=== PATIENT | male | born 1955 | race African-American/Black ===

== ENCOUNTER 2023-11-27 11:13 | Emergency (ER) | payer MEDICARE, SELFPAY ==
--- NOTE | ~2023-11-27 | CT_ITS ---
EXAMINATION: CT pelvis wo con DATE: 11/27/2023 13:35 INDICATION: Right hip and pelvic pain. Fall. TECHNIQUE: Computed tomography (CT) of the pelvis was performed without intravenous contrast. Automat ed exposure control and iterative reconstruction technique were employed. The dose-length product was 224.06 mGy-cm. COMPARISON: None FINDINGS: There are no pathologically enlarged lymph nodes. There is no ascites. Bone alignment is no rmal. No fracture. There is a benign bone island in right pelvis. There is mild osteoarthritis of the hips. There is mild lumbar spondylosis. IMPRESSION: 1. No fracture. 2. Mild osteoarthritis of the hips. Reviewed, dictated and finalized at location A.
[2023-11-27 11:43] VITALS: BP 139/109; PULSE 63; RESP 19; TEMP 36.4; O2SAT 100
--- NOTE | 2023-11-27 13:27 | ED.LOWEXIN ---
HPI - Extremity Injury (Lower) General Chief Complaint: Extremity Injury, Lower <AUDREY Jaimes Last Filed: 11/27/23 13:30> Stated Complaint: fall 2 weeks ago-right hip pain <Marisol Dyson PA-C - Last Filed: 11/27/23 13:30> Time Seen by Provider: 11/27/23 13:28 <AUDREY Jaimes Last Filed: 11/27/23 13:30> Focused HPI: Patient is a 68-year-old male who presents the ED with report of right hip and pelvic pain. 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 He fell onto his right side. He has been ambulatory since fall, but complains of pain with this. Reports pain is rated a 10/10 at times, causing him to have trouble with sleeping. he was seen at [facility] and prescribed meloxicam and given a dose of steroids. He did not have any imaging performed. He reports minimal relief with meloxicam. States pain radiates down his leg. Denies back pain. Denies numbness, saddle anesthesia, bowel or bladder incontinence. GENERAL: Well-appearing, well-nourished, and in no acute distress. HEAD: Normocephalic, atraumatic. CHEST: Clear to auscultation. ?No respiratory distress. HEART: Regular rate and rhythm.? MSK: TTP in R SI region, R posterior buttock, R lateral hip. Sensation intact. No midline spinal tenderness. NEURO: ?Alert and oriented x3. Patient screened in triage and initial orders placed.? ?Additional care and disposition to be based upon?diagnostic testing and treatment. <AUDREY Jaimes Last Filed: 11/27/23 13:30> Source: patient <AUDREY Jaimes Last Filed: 11/27/23 13:30> Mode of arrival: ambulatory <AUDREY Jaimes Last Filed: 11/27/23 13:30> Limitations: no limitations <AUDREY Jaimes Last Filed: 11/27/23 13:30> History of Present Illness HPI Narrative: Agree with the above with the following additions/corrections: Fall occurred 2 weeks ago. He states [place] give him some 500mg medication but this made his stomach hurt. It was his primary care provider Libertad Ashton who prescribed the steroid and meloxicam. States no imaging performed yet and had been having 10/10 pain that was affecting sleep and ADLs. He initially had bruising and swelling but states that went away with the medications his provider prescribed. At the time of my evaluation he had just received 1000mg Tylenol and stated he felt so good I feel like I could dance. <Ekaterina Levy MD - Last Filed: 11/27/23 23:46> Related Data Allergies/Adverse Reactions: Allergies Allergy/AdvReac Type Severity Reaction Status Date / Time No Known Allergies Allergy Verified 11/27/23 14:18 <Marisol Dyson PA-C - Last Filed: 11/27/23 13:30> Exam Const: General: healthy appearing, no acute distress and alert; No confusion, diaphoretic or ill appearing <Ekaterina Levy MD - Last Filed: 11/27/23 23:46> Nutritional Appearance: well nourished <Ekaterina Levy MD - Last Filed: 11/27/23 23:46> Orientation/consciousness: patient oriented x3 <Ekaterina Levy MD - Last Filed: 11/27/23 23:46> Limitations: no limitations <Ekaterina Levy MD - Last Filed: 11/27/23 23:46> HENMT: Other: gross auditory acuity intact <Ekaterina Levy MD - Last Filed: 11/27/23 23:46> Eyes: Direct Ophthalmoscopy: no photophobia <Ekaterina Levy MD - Last Filed: 11/27/23 23:46> Neck: Neck: no meningeal signs <Ekaterina Levy MD - Last Filed: 11/27/23 23:46> Resp: Effort & Inspection: normal respiratory effort, not labored, no retractions, not tachypneic and no use of accessory muscles <Ekaterina Levy MD - Last Filed: 11/27/23 23:46> Cardio: Rate: regular rate, not bradycardic and not tachycardic <Ekaterina Levy MD - Last Filed: 11/27/23 23:46> GI: Inspection: non-distended <Ekaterina Levy MD - Last Filed:
[2023-11-27 14:14] VITALS: BP 181/116; PULSE 89; RESP 15; O2SAT 100
[2023-11-27] MEDS: ACETAMINOPHEN 500 MG TABLET 1000 MG PO (14:20)
[2023-11-27 15:01] VITALS: BP 152/98; PULSE 64; RESP 15; TEMP 36.6; O2SAT 97
== END 2023-11-27 15:03 | disposition home or self-care (01) ==
PROVIDERS: Emergency Provider Student in an Organized Health Care Education/Training Program
DX: S70.11XA Contusion of right thigh, initial encounter (principal); M16.0 Bilateral primary osteoarthritis of hip; W18.39XA Other fall on same level, initial encounter
CPT/HCPCS: 72192; 99284; A9270

== ENCOUNTER 2024-09-12 12:13 | Outpatient (CLI) | payer MEDICARE, SELFPAY ==
--- NOTE | ~2024-09-12 | CT_ITS ---
CT Scan of the Chest without Contrast: Clinical Indication: Lung cancer screening, nicotine dependence Technique: Contiguous sections were acquired throughout the chest without intravenous contrast. Dose reduction technique was used on this scan by utilizing automated exposure control and iterative recon struction technique. The dose-length product (DLP) was 82.65 mGy-cm. Findings: There is no evidence of any significant mediastinal, hilar or axillary lymphadenopathy. Extensive cor onary artery calcifications are present. There is cardiomegaly. There is no evidence of pleural or pericardial effusion. 3 mm right apical nodule present. 8 mm left upper lobe nodule present (axial image 54). Images through the upper abdomen reveal no abnormalities. Impression: Lung RADS 4A: Suspicious. 3 month follow-up CT recommended given 8 mm left upper lobe pulmonary nodul e. Reviewed, dictated and finalized at [facility]. Impression: Lung RADS 4A: Suspicious. 3 month follow-up CT recommended given 8 mm left uppe r lobe pulmonary nodule.
--- OUTSIDE RECORDS SUMMARY | 2024-09-12 12:22 | XMS_ITS | Data Portability ---
Author Organization [facility] [employer], Main Office Address [address] [place] [address] Assessment No assessment recorded. Plan of Treatment Reminders Order Date Submit Date Provider Last Modified By Organization Details Last Modified Time Details Appointments None recorded. Lab CMP, serum or plasma [address] [facility], [address] [place], [address], 4 09:14:25 CBC w/ auto diff [address] Out[facility] Lab, [address] [place], [address], 4 09:14:25 HbA1c (hemoglobi n A1c), blood 2023 024 [facility] Outpatient Lab, [address] [place], [address], 4 13:00:07 lipid panel, serum [address] Out[facility] Lab, [address] [place], [address], 4 09:14:24 TSH + free T4, serum [address] Outpatient Lab, [address] [place], [address], 4 09:14:25 PSA, serum or plasma 2022 023 [email or web address] [facility] (Lab), [address] [place], [address], 3 08:22:50 lipid panel, serum 2022 023 [facility] (Lab), [address] [place], [address], 3 09:37:07 CMP, serum or plasma 2022 023 [facility] (Lab), [address] [place], [address], 3 09:37:05 Referral None recorded. Procedures None recorded. Surgeries None recorded. Imaging None recorded. Medication Orders meloxicam 15 mg tablet 2023 024 [facility] #[id number], [address] [place], [id number], 4 15:46:24 Medrol (Apolinar) 4 mg tablets in a dose pack 2023 024 [facility] #[id number], [address] [place], [place], [id number], 4 15:46:25 Zyrtec 10 mg tablet 2023 024 [facility] #42188, [address] [place], [place], [id number], 4 10:10:47 metoprolol succinate ER 50 mg tablet,ext ended release 24 hr 2023 024 [facility] #32264, [address] [place], [place], [id number], 4 10:10:53 aspirin 81 mg tablet,del ayed release 2023 024 [facility] #76645, [address], [place], [place], [id number], 4 10:10:49 Depo-Medro l 80 mg/mL suspension for injection 2023 024 lindsey Not available 4 09:52:52 Banophen 25 mg capsule [address] [facility] #02740, [address], [place], [place], [id number], 4 08:18:14 prednisone 20 mg tablet [address] [facility] #03535, [address] , [place], [place], [id number], 4 08:18:14 Thera-Gel 0.5 % shampoo 2023 024 TERESSA [facility] #43177, [address] , [place], [place], [id number], 4 09:34:32 Patient TargetsNo targets recorded. Patient Instructions Encounter Date Encounter Id Patient Instructions Last Modified By Organization Details Last Modified Time 07/23/2023 [id number] Follow up in 4 months Refills sent to pharmacy Obtain labs Not available 07/23/2023 10:10:35 11/19/2023 [id number] Follow up in 2 months Prescriptions sent to pharmacy Referral: Recommend: Tetanus vaccine Shingles vaccine Not available 11/19/2023 15:46:48 Reason for Referral None Reported. Results Created Date Observation Date Name Description Value Unit Range Abnormal Flag Note LastModifiedBy Organization Detail LastModifiedTime 10/22/19 23 10/21/2022 COMPR EHENS YUE METAB OLIC PANEL sodium 141 mmol/ L 137-14 5 Not Available [facility] (Lab) [address] [facility], [place], [address], 10/21/2022 09:37:05 10/22/19 23 10/21/2022 COMPR EHENS YUE METAB OLIC PANEL potassium 4.0 mmol/ L 3.5-5. 1 Not Available [facility] (Lab) [address] [place], [address], 10/21/2022 09:37:05 10/22/19 23 10/21/2022 COMPR EHENS YUE METAB OLIC PANEL chloride 107 mmol/ L 98-107 Not Available [facility] (Lab) [address] [place], [address], 10/21/2022 09:37:05 10/22/19 23 10/21/2022 COMPR EHENS YUE METAB OLIC PANEL carbon dioxide 28 mmol/ L 22-30 Not Available [facility] (Lab) [address] [place], [address], 10/21/2022 09:37:05 10/22/19 23 10/21/2022 COMPR EHENS YUE METAB OLIC PANEL anion gap 10.0 mmol/ L 14-22 low Not Available [facility] (Lab) [address] [facility], [address], 10/21/2022 09:37:05 10/22/19 23 10/21/2022 COMPR EHENS YUE METAB OLIC PANEL glucose 93 mg/dL 70-99 Not Available [facility] (Lab) [address] [place], [address], 10/21/2022 09:37:05 10/22/19 23 10/21/2022 COMPR EHENS YUE METAB OLIC PANEL BUN 7 mg/dL 8-19 low Not Available [facility] (Lab) [address] [facility], [address], 10/21/2022 09:37:05 10/22/19 23 10/21/2022 COMPR EHENS YUE METAB OLIC PANEL creatinine 0.85 mg/dL 0.66-1 .25 Not Available [facility] (Lab) [address] [place], [address], 10/21/2022 09:37:05 10/22/19 23 10/21/2022 COMPR EHENS YUE METAB OLIC PANEL GFR >60 Refer ence Range : Redby ge GFR Healt hy Adult : >60 mL/mi n/1.7 3 m2 Chron ic Kidne y Disea se: 15-60 mL/mi n/1.7 3 m2 Kidne y Failu re: <15/m L/min /1.73 m2 www.n iddk. nih.g ov The MDRD study equat ion has not been valid ated in child raquel <18 years of age; pregn ant women ; the elder ly >85 years of age; or in some racia l or ethni c subgr oups, such as Rob nics. Outsi de the valid ated leonel eters , estim ated GFR is less accur ate, requi ring clini janell judgm ent on a case- by-ca se basis . Clini janell inter preta tion for other races and ages must be made by the clini jarvis. The MDRD study equat ion has not been valid ated for the evalu ation of serum creat inine relat ed to nutri kaiden l statu s or medic ation usage . For perso ns <18 years of age, a pedia tric GFR calcu lator is avail able on the [facility] websi te: https ://jonnie mauricio.o rg/pr ofess ional s/kdo qi/gf r_cal culat or Not Available [facility] (Lab) [address] [place], [address], 10/21/2022 09:37:05 10/22/1910/21/2022 COMPR EHENS YUE METAB OLIC PANEL alkaline phosphatase 70 U/L 38-126 Not Available [facility] (Lab) [address] [place], [address], 10/21/2022 09:37:05 10/22/19 23 10/21/2022 COMPR EHENS YUE METAB OLIC PANEL alanine aminotransfe rase 18 U/L 0-50 Not Available [facility] (Lab) [address] [place], [address], 10/21/2022 09:37:05 10/22/19 23 10/21/2022 COMPR EHENS YUE METAB OLIC PANEL aspartate aminotransfe rase 24 U/L 15-46 Not Available [facility] (Lab) [address] [place], [address], 10/21/2022 09:37:05 10/22/19 23 10/21/2022 COMPR EHENS YUE METAB OLIC PANEL bilirubin, total 0.80 mg/dL 0.20-1 .30 Not Available [facility] (Lab) [address] [place], [address], 10/21/2022 09:37:05 10/22/19 23 10/21/2022 COMPR EHENS YUE METAB OLIC PANEL calcium 8.9 mg/dL 8.4-10 .2 Not Available [facility] (Lab) [address] [place], [address], 10/21/2022 09:37:05 10/22/19 23 10/21/2022 COMPR EHENS YUE METAB OLIC PANEL total protein 7.0 g/dL 6.3-8. 2 Not Available [facility] (Lab) [address] [place], [address], 10/21/2022 09:37:05 10/22/19 23 10/21/2022 COMPR EHENS YUE METAB OLIC PANEL albumin 3.8 g/dL 3.0-4. 4 Not Available [facility] (Lab) [address] [place], [address], 10/21/2022 09:37:05 10/22/19 23 10/21/2022 COMPR EHENS YUE METAB OLIC PANEL globulin 3.2 g/dL 2.6-4. 2 Not Available [facility] (Lab) [address] [place], [address], 10/21/2022 09:37:05 10/22/19 23 10/21/2022 COMPR EHENS YUE METAB OLIC PANEL A/G ratio 1.2 ratio 1.0-2. 0 Not Available [facility] (Lab) [address] [place], [address], 10/21/2022 09:37:05 10/22/19 23 10/21/2022 LIPID PANEL cholesterol 159 mg/dL 140-19 9 NIH TY NSUS RECOM MENDA TION FOR LOGAN STERO L: ADULT CHILD LOW RISK: <200 <170 BORDE RLINE : <200- 239 ----- HIGH RISK: >240 >200 Not Available [facility] (Lab) [address] [place], [address], 10/21/2022 09:37:07 10/22/19 23 10/21/2022 LIPID PANEL triglyceride s 62 mg/dL 0-150 NIH TY NSUS REPOR T RECOM MENDA TION FOR TRIGL YCERI STEPHEN: ADULT CHILD LOW RISK: <150 ----- BODER LINE: 150-1 99 ----- HIGH RISK: >200 ----- Not Available [facility] (Lab) [address] [place], [address], 10/21/2022 09:37:07 10/22/19 23 10/21/2022 LIPID PANEL HDL cholesterol 30 mg/dL 40- low Not Available [facility] (Lab) [address] [place], [address], 10/21/2022 09:37:07 10/22/1910/21/2022 LIPID PANEL LDL cholesterol, calculated 117 mg/dL 0-130 NIH TY NSUS REPOR T RECOM MENDA TIONS FOR LDL: ADULT CHILD LOW RISK <130 <110 (OPTI MAL LDL) <100 ----- BORDE RLINE : 130-1 59 ----- HIGH RISK: >160 >130 A TRIGL YCERI DE RESUL T >400 INVAL IDATE S THE CALCU LATIO N FOR LDL FRACT IONAT ION - THE LDL RESUL T WILL NOT BE REPOR JANA. Not Available [facility] (Lab) [address] [place], [address], 10/21/2022 09:37:07 10/22/19 23 10/21/2022 PSA SCREE N PSA medicare screen 0.92 NG/mL 0.00-4 .00 Not Available [facility] (Lab) [address] [facility], [place], [address], 10/21/2022 10:09:10 03/03/20 23 03/03/2023 US, doppl er echoc ardio gram No observ ation record ed. [email or web address] [facility] [address] , [place], [address], 03/25/2023 13:26:18 06/30/19 25 06/29/2024 trans -thor acic echoc ardio gram (TTE) (PROC ) No observ ation record ed. [facility] [address] [facility] [address], [place], [address], 06/30/2024 08:55:33 06/30/19 25 06/29/2024 imagi ng/di agnos tic resul t No observ ation record ed. TERESSA [facility] [address] , [place], [address], 06/29/2024 18:41:53 06/30/19 25 06/29/2024 US, gianna porter id arter y No observ ation record ed. [email or web address] [facility] [address] , [place], [address], 06/30/2024 08:56:06 06/30/19 25 06/29/2024 imagi ng/di agnos tic resul t No observ ation record ed. TEERSSA [facility] [address], [place], [address], 06/29/2024 18:50:03 Result Notes None recorded. Problems Name Problem SNOMED Code Status Onset Date Resolution Date Notes Provider Name and Address Organization Details Recorded Time Hypertensiv e disorder 47029256 Active 2022 Libertad Ashton APRN [address], [place], [address], [employer] 4 08:20:56 Hypercholes terolemia 77038623 Active 2022 Libertad Ashton APRN [address], [address], [place], [address], [employer] 4 08:20:51 Myocardial infarction 57088746 Active 2022 Libertad Ashton APRN [address], [address], [place], [address], [employer] 4 08:20:58 Coronary arterioscle rosis 36886240 Active 2022 Libertad Ashton APRN [address], [address], [place], [address], [employer] 4 08:20:49 Hyperlipide mitzi 23060875 Active 2022 Libertad Ashton APRN [address], [address], [place], [address], [employer] 4 08:20:53 Contact dermatitis 73582789 Active 2023 ADAL Sarabia [address], [address], [place], [address], [employer] 4 09:32:03 Seborrheic dermatitis 31369072 Active 2023 Libertad Ashton APRN [address], [address], [place], [address], [employer] 4 08:21:02 Cardiac pacemaker in situ 136687805 Active 2023 Libertad Ashton APRN [address], [place], [address], [facility] [employer] [facility] 4 08:20:47 Streptococc al sore throat 94541737 Active Libertad WeeksTAVIA putnamN [address], [place], [address], [facility] [employer] [facility] 4 08:18:02 Eczema 45450633 Active Libertad SAEID Ashton [address], [place], [address], [facility] [employer] [facility] 4 08:21:06 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 Libertad Ashton APRN [address], [address], [place], [address], [facility] [employer] [facility] 4 08:19:14 Seasonal allergy 064485083 Active 2023 Libertad Ashton APRN [address], [place], [address], [facility] [employer] [facility] 4 10:07:59 Sprain of right hip 2038460048209 9104 Active Libertad SAEID Ashton [address], [place], [address], [facility] [employer] [facility] 4 08:23:57 Pain of right hip joint 9836456959051 02 Active 2023 Libertad Ashton APRN [address], [place], [address], [facility] [employer] [facility] 4 08:27:02 Problem Notes None recorded. Procedures Surgical History Date Name Laterality Status Provider Name and Address Organization Details Recorded Time 4 Medicare Wellness CPT Code, Initial cancelled Libertad SAEID Ashton [address], [place], [address], [facility] [employer] [facility] 01/15/2024 13:58:54 Pacemaker completed LEANN Garcia [email or web address] 10/20/2022 14:56:37 Imaging Results None recorded. Procedure Notes None recorded. Medical Equipment None Reported. Allergies Allergen ID Allergen Name Allergen Category Reaction Reaction Severity Criticality Documentation Date Start Date Code Code System Note Provider Name and Address Organization Details Recorded Time 68421 No known allergy (situatio n) Not available Not available Not available Not available 07/23/2023 [id number] SNOMED Libertadana Ashton, [employer] [address] [facility], [facility] [address], [place], [address] [facility] [email or web address] 4 08:17:45 No known drug allergies Medications Name Sig Start Date Stop Date Status Note LastModified by Organization Details LastModified Time prednisone 10 mg tablet 05/25 completed Not Available Not Available Not Available azithromyci n 250 mg tablet Take 2 TABLET EVERY DAY by oral route for 1 day. Than 1 tablet for 4 days 06/24 completed Not Available Not Available Not Available metoprolol succinate ER 50 mg tablet,exte nded release 24 hr medicatio n:metopro lol succinate 50 mg Tablet do se:0.0 route:BY MOUTH aly quency:DA FERDINAND active Not Available Not Available No t Available meloxicam 15 mg tablet TAKE 1 TABLET BY MOUTH EVERY DAY DIRECTED FOR MUSCLE SPRAIN active Not Available Not Available No t Available prednisone 20 mg tablet Take 2 tabs PO twice daily for 2 days; 1 tab PO twice daily for 5 days; 0.5mg PO twice daily for 2 days; 0.5mg PO once for 1 day. TAKE 2ND DOSE EVERYDAY AT NOON-10 DAY COURSE active Not Available Not Available No t Available metoprolol succinate ER 100 mg tablet,exte nded release 24 hr 01/17 completed Not Available Not Available Not Available Zyrtec 10 mg tablet 1 tablet by mouth daily 2023 active Not Available Not Available Not Avai lable ciprofloxac in 500 mg tablet active Not Available Not Available Not Available aspirin 81 mg tablet,raghu yed release TAKE 1 TABLET BY MOUTH EVERY DAY active Not Available Not Available No t Available tramadol 50 mg tablet active Not Available Not Available No t Available acetaminoph en 500 mg tablet TAKE 2 TABLET BY MOUTH EVERY 6 HOURS NEEDED FOR PAIN active Not Available Not Available No t Available triamcinolo ne acetonide 0.1 % topical cream APPLY A THIN LAYER TO THE AFFECTED AREA(S) BY TOPICAL ROUTE 2 TIMES PER DAY active Not Available Not Available No t Available Depo-Medrol 80 mg/mL suspension for injection Take 1 mL by injection route. 07/22 completed Not Available Not Available Not Available Tessalon Perles 100 mg capsule Take 1 capsule 3 times a day by oral route. 06/24 completed Not Available Not Available Not Available famotidine 20 mg tablet 20 mg by oral route. 03/26 completed Not Available Not Available Not Available magnesium oxide 400 mg (241.3 mg magnesium) tablet TK 1 T PO BID 06/24 completed Not Available Not Available Not Available Banophen 25 mg capsule TAKE 1 CAPSULE BY MOUTH EVERY 4 HOURS NEEDED active Not Available Not Available No t Available pravastatin 20 mg tablet TK 1 T PO D 05/25 completed Not Available Not Available Not Available lisinopril 5 mg tablet TK 1 T PO D 06/24 completed Not Available Not Available Not Available metoprolol succinate ER 25 mg tablet,exte nded release 24 hr TAKE 1 TABLET BY MOUTH EVERY DAY 05/25 completed Not Available Not Available Not Available dexamethaso ne sodium phosphate 4 mg/mL injection solution 4 mg by injection route. 03/26 completed Not Available Not Available Not Available methylpredn isolone 4 mg tablets in a dose pack TAKE BY MOUTH DIRECTED active Not Available Not Available No t Available naproxen 500 mg tablet TAKE 1 TABLET BY MOUTH TWICE DAILY WITH FOOD active Not Available Not Available No t Available hydroxyzine pamoate 25 mg capsule 25 mg by oral route. 03/26 completed Not Available Not Available Not Available Bicillin L-A 1,200,000 unit/2 mL intramuscul ar syringe 1.2 mus by intramusc . route. 10/07 completed Not Available Not Available Not Available rosuvastati n 5 mg tablet TAKE 1 TABLET BY MOUTH EVERY DAY 10/20 completed Not Available Not Available Not Available Salonpas active Not Available Not Avai lable Not Available Thera-Gel 0.5 % shampoo Apply 1 applicati on every 2 weeks by topical route for 30 days. 2023 active Not Available Not Available Not Avai lable Chantix Starting Month Box 0.5 mg (11)-1 mg (42) tablets in dose pack 10/20 completed Not Available Not Available Not Available aspirin 81 mg capsule Take 1 capsule every day by oral route. 07/26 completed Not Available Not Available Not Available Vitals Date Recorded Body height Body mass index (BMI) Body weight Body temperature Respiratory rate Heart rate Oxygen saturation Oxygen saturation in Arterial blood by Pulse oximetry Systolic blood pressure Diastolic blood pressure Provider Name and Address Organization Details Last Updated DateTime 4 170.18 cm 27.4 kg/m2 77044.6 6 g 97.8 [degF] 16 /min 68 /min 98 % 98 % 136 mm[Hg] 82 mm[Hg] Geena Leo RN [facility] [employer] [facility] 4 08:54:03 Date Recorded Body height Body mass index (BMI) Body weight Body temperature Heart rate Oxygen saturation Oxygen saturation in Arterial blood by Pulse oximetry Systolic blood pressure Diastolic blood pressure Provider Name and Address Organization Details Last Updated DateTime 4 170.18 cm 27.3 kg/m2 63447.0 7 g 97 [degF] 61 /min 98 % 98 % 144 mm[Hg] 68 mm[Hg] Fransisca Ball MA [facility] [employer] [facility] 4 09:52:21 Date Recorded Body weight Body mass index (BMI) Body height Body temperature Heart rate Oxygen saturation Oxygen saturation in Arterial blood by Pulse oximetry Systolic blood pressure Diastolic blood pressure Provider Name and Address Organization Details Last Updated DateTime 3 02686.9 3 g 26.2 kg/m2 170.18 cm 98.1 [degF] 60 /min 97 % 97 % 130 mm[Hg] 78 mm[Hg] LEANN Garcia [facility] [employer] [facility] 3 14:59:38 Date Recorded Body height Body mass index (BMI) Body weight Body temperature Heart rate Oxygen saturation Oxygen saturation in Arterial blood by Pulse oximetry Systolic blood pressure Diastolic blood pressure Provider Name and Address Organization Details Last Updated DateTime 4 170.18 cm 26 kg/m2 34554.3 3 g 97.5 [degF] 74 /min 99 % 99 % 140 mm[Hg] 80 mm[Hg] Fransisca Ball MA [email or web address] 15:35:14 Social History Question Answer Notes LastModified by Organization Details LastModified Time Tobacco Smoking Status Current Every Day Smoker 1/2 ppd Anjali Castillo, LEANN null, [place] [facility] 10/20/2022 14:55:36 What Is Your Level Of Caffeine Consumption? Heavy Information not available 07/23/2023 In The 14 Days Before Symptom Onset, Have You Had Close Contact With A Laboratory-confi rmed COVID-19 While That Case Was Ill? No Information not available 07/23/2023 In The 14 Days Before Symptom Onset, Have You Had Close Contact With A Person Who Is Under Investigation For COVID-19 While That Person Was Ill? No Information not available 07/23/2023 What Type Of Diet Are You Following? REGULAR Information not available 07/23/2023 Have There Been Any Changes To Your Family Or Social Situation? No Information not available 07/23/2023 Do You Use Insect Repellent Routinely? No Information not available 07/23/2023 Where Do You Live? SingleLevelHouse Information not available 07/23/2023 What Was The Date Of Your Most Recent Tobacco Screening? 11/19/2023 Information not available 11/19/2023 How Many Children Do You Have? 3 Information not available 07/23/2023 Do You Have Any Pets? Yes Information not available 07/23/2023 What Is Your Relationship Status? Information not available 07/23/2023 Do You Use Your Seat Belt Or Car Seat Routinely? Yes Information not available 07/23/2023 Do You Have Smoke And Carbon Monoxide Detectors In Your Home? No Information not available 07/23/2023 At What Age Did You Start Smoking Tobacco? 16 Information not available 07/23/2023 Are You Passively Exposed To Smoke? Yes Information not available 07/23/2023 Are There Any Smokers In Your House? No Information not available 07/23/2023 How Much Tobacco Do You Smoke? 0.5 PPD Information not available 07/23/2023 Do You Use Sunscreen Routinely? No Information not available 07/23/2023 How Many Years Have You Smoked Tobacco? 20 [email or web address] Information not available 10/20/2022 Have You Recently Traveled Abroad? No Information not available 07/23/2023 Do You Have Any Dietary Restrictions? No Information not available 07/23/2023 Sex: Unknown Functional Status Question Answer Note LastModified by Organizat ion Details LastModified Time Do you use any illicit or recreational drugs? No Information not available 07/23/2023 What is your level of alcohol consumption? None Information not available 07/23/2023 Are you currently employed? Yes Information not available 07/23/2023 What is your occupation? Self employed Information not available 07/23/2023 What is your exercise level? Heavy Information not available 07/23/2023 Mental Status Question Answer Note LastModified by Organization D etails LastModified Time Do you feel stressed (tense, restless, nervous, or anxious, or unable to sleep at night)? [id number] Information not available 07/23/2023 Family History Relationship Description Onset Age of this Age Resolved Age Notes LastModified by Organization Details LastModified Time Father No current problems or disability [email or web address] Not available 10/20 14:55:07 Mother No current problems or disability [email or web address] Not available 10/20 14:55:07 Medical History Condition Response BLINDNESS N RHEUMATIC FEVER N KIDNEY STONES N BLADDER PROBLEMS N MRSA N OTHER # 1 N POLIO N LUNG DISEASE/DISORDER N HISTORY OF DRUG ABUSE N RADIATION / CHEMOTHERAPY N COPD N Other # 2 N BLOOD DISEASES N SURGERY N EAR OR HEARING PROBLEMS N MUMPS N SHINGLES N BOWEL PROBLEMS N FEMALE PROBLEMS / INFECTIONS N DEPRESSION (INCLUDING POST ) N FAILED BACK SYNDROME N STROKE/TIA N THYROID DISEASE N ULCERS N BENIGN PROSTATIC HYPERPLASIA N MEASLES N CERVICALGIA N HYPOTENSION N TB SKIN TEST N MYOCARDIAL INFARCTION N PARAPELGIA N OBESITY N GERD/NAUSEA N ANEURYSM N URINARY/BLADDER/KIDNEY PROBLEMS N CORONARY ARTERY DISEASE (CAD) N MENIERE'S DISEASE N Do you have Advance directive? N ADDICTION CONCERNS N ENDOMETRIOSIS N USE OF BLOOD THINNERS N SKIN PROBLEMS N EMPHYSEMA N GASTROINTESTINAL DISORDER N PERIPHERAL ARTERY DISEASE N MUSCLE,JOINT OR BONE PROBLEMS N GASTROINTESTINAL BLEEDING N BLOOD CLOTS N ASTHMA N Abdominal Pain N CATARACTS N ARTERIAL INSUFFICIENCY N ERECTILE DYSFUNCTION N GI PROBLEMS N CHF N Low Testosterone N NEUROPATHY N INFERTILITY N AIDS/HIV N FRACTURES N CHEMOTHERAPY / RADIATION N VISION/EYE PROBLEMS N LIVER DISEASE N HYPERTENSION N TOURETTE'S N ANXIETY DISORDER N BLOOD TRANSFUSION N ANEMIA/BLOOD DISORDER N CHRONIC EAR INFECTIONS N BRONCHITIS N TUBERCULOSIS N GLAUCOMA N FOOT PROBLEM N DIVERTICULITIS N CHICKENPOX N SLEEP APNEA N BACK INJECTIONS N ALLERGIES/HAYFEVER N INFECTIOUS DISEASE N HEART ARRHYTHMIA N PROSTATE N ESRD N INSOMNIA N HIGH CHOLESTEROL / HYPERLIPIDEMIA N HYPERTHYROIDISM N EYE PROBLEMS N PVD N EATING DISORDER N EDEMA N CHRONIC PAIN SYNDROME N CAROTID BLOCKAGE N CONSTIPATION N BACK / NECK PROBLEMS N HAVE YOU BEEN HOSPITALIZED OR SEEN IN [facility] IN THE PAST YEAR ? N ATHEROSCLEROSIS N BREAST PROBLEMS N DIALYSIS N POLYCYSTIC OVARIES N ECZEMA N FIBROMYALGIA N OSTEOPOROSIS N ARTHRITIS N NO SIGNIFICANT PAST MEDICAL HISTORY N APPENDICITIS N DIABETES, TYPE N BAD TEETH N VON WILLIBRAND'S DISEASE N HEARTBURN / REFLUX N ADD/ADHD N AUTISM SPECTRUM DISORDER (ASD) N POST LAMINECTOMY SYNDROME N HEPATITIS / LIVER DISEASE N PULMONARY DISEASE N GOUT N SLEEP DISORDER N ALZHEIMER'S DISEASE N PAIN N HERPES N DEMENTIA N HEADACHES/MIGRAINES N SEIZURES/EPILEPSY N VASCULAR DISEASE N PACEMAKER N DIZZINESS N HEART DISEASE/HEART PROBLEMS N KIDNEY DISEASE N DEVELOPMENTAL OR BEHAVIORAL DISORDERS N MULTIPLE SCLEROSIS N SCARLET FEVER N MENTAL DISORDER/ILLNESS N NEUROPSYCHOLOGICAL N CARDIAC ARRHYTHMIA N CANCER: SPECIFY N PNEUMONIA N ATRIAL FIBRILLATION N Gall Stones N PULMONARY EMBOLISM N AUTOIMMUNE DISEASE N Immunizations Vaccine Type Date Status Note Provider Nam e and Address Organization Details Recorded Time COVID-19, mRNA, LNP-S, PF, 100 mcg/0.5mL dose or 50 mcg/0.25mL dose 2 completed Libertad Ashton, TRANSPORTATION ECONOMICS TEACHER [address] [facility], [facility] [address], [place], [address], [facility] [employer] 07/23/2023 08:18:31 COVID-19, mRNA, LNP-S, PF, 100 mcg/0.5mL dose or 50 mcg/0.25mL dose 1 completed Libertad Ashton APRN [address], [place], [address], [facility] [employer] [facility] 07/23/2023 08:18:31 COVID-19, mRNA, LNP-S, PF, 100 mcg/0.5mL dose or 50 mcg/0.25mL dose 1 completed Libertad Ashton APRN [address], [address], [place], [address], [facility] [employer] [facility] 07/23/2023 08:18:31 Pneumococcal conjugate PCV 13 9 completed Not Available [facility] 04/30/2023 03:21:32 Influenza, high-dose, trivalent, PF 9 completed Not Available [facility] 04/30/2023 03:21:32 Past Encounters Encounter ID Performer Location Encounter Start Date Encounter Closed Date Diagnosis/Indication Diagnosis SNOMED-CT Code Diagnosis ICD10 Code Diagnosis Note [id number] David Cordoba MD [facility] [address] [place] [address] [place] [address] 10/20/2022 14:46:09 10/20/2022 15:11:03 Coronary arteriosclerosis 15543550 I25.10 Hyperlipidemia 95821395 E78.5 Screening for malignant neoplasm of prostate 151314869 Z12.5 [id number] David Cordoba MD [facility] [address] [place] [address] 05/26/2023 08:46:48 05/26/2023 09:41:58 Seborrheic dermatitis 49766370 L21.9 Contact dermatitis 40592 004 L25.9 Cardiac pa cemaker in situ 751735047 Z95.0 Coronary arteriosclerosis 22133959 I25.10 Hyperlipidemia 70297405 E78.5 Hypertensive disorder 38 199211 I10 [id number] Finn katz MD [facility] Internal Med [address] [place] [address] 07/23/2023 09:41:04 07/23/2023 10:13:19 Hyperlipidemia 59559277 E78.5 Hypertensive disorder 38 871526 I10 Seasonal allergy 1975018 04 J30.2 [id number] Finn katz MD [facility] Internal Med [facility] [address] [facility] [address] [place] [address] 11/19/2023 15:21:38 11/19/2023 15:50:41 Pain of right hip joint 5389660448 44138 M25.551 Sprain of right hip 1178 687902 4079122 S73.101D Health Concerns Section Related Observation LastModified by Organization Detai ls LastModified Time None Recorded Concern Status LastModified by Organization Details LastModified Time None Recorded Advance Directives Directive None Recorded Payers Insurance Date Sequence Insurance Name Policy Number Policy Arce Covered Member ID Arce Member ID Guarantor Name 02/19/2024 2 [place] (SECONDARY PLAN WHEN MEDICARE OR MEDICARE REPLACEMENT PRIMARY) Cristhian Branch [id number] Cristhian Branch 02/19/2024 1 [facility] (MEDICARE REPLACEMENT/AD VANTAGE - HMO) [id number] [facility] B Branch [id number] [facility] Branch Notes Date Note Type Note Provider Name and Address Organization Details Recorded Time 10/20/2022 text/html Here today to re establish care. Had Bypass surgery 6 months ago. Feeling good. No issues or complaints today. He is on metoprolol and is doing well on this. Nothing is bothering him. David Cordoba MD [address] [place] [address], [place], [address], [employer] [facility] [employer] 10/21/2022 05:56:51 05/26/2023 text/html rash on trunk ADAL [place] [address] [facility] [address], [place], [address], [facility] [employer] [facility] [employer] 06/04/2023 16:11:54 07/23/2023 text/html Cristhian presents today to establish care. He states that he is having a rash and believes that it may be from his laundry soap. He continues to see cardiology due to a heart attack and pacemaker placement. He states that he has only been shocked once. 10/20/2022Here today to re establish care. Had Bypass surgery 6 months ago. Feeling good. No issues or complaints today. He is on metoprolol and is doing well on this. Nothing is bothering him. Libertad Ashton APRN [address], [facility] [address], [place], [address], [employer] [facility] [employer] 07/23/2023 10:10:47 11/19/2023 text/html Cristhian presents today due to right hip pain. He sustained a fall and went to the ED. He was sent home with Naproxen, but has not been able to tolerate the medication. He states that he picked Aleve and lidocaine pain patches. He states that he is still having some pain to the inside of his hip. 07/23/2023Larry presents today to establish care. He states that he is having a rash and believes that it may be from his laundry soap. He continues to see cardiology due to a heart attack and pacemaker placement. He states that he has only been shocked once. 10/20/2022Here today to re establish care. Had Bypass surgery 6 months ago. Feeling good. No issues or complaints today. He is on metoprolol and is doing well on this. Nothing is bothering him. Libertad Ashton APRN [address], [facility] [address], [place], [address], [email or web address] 11/19/2023 15:46:54
--- OUTSIDE RECORDS SUMMARY | 2024-09-12 12:22 | XMS_ITS | Clinical Summary ---
Author Organization [facility] Address [address] [place] [address] Care Team Providers Care Abstract Checker Name Role Phone David Cordoba MD Primary Care Provider [phone] Allergies Active Allergy Reactions Criticality Noted Date Comments Jimbo Inhibitors Unknown High 04/16/2021 Ticagrelor Unknown 07/01/2021 Finasteride Unknown 07/01/2021 Atorvastatin Unknown 07/01/2021 Lisinopril Unknown 07/01/2021 Lovastatin Unknown 07/01/2021 Valsartan Unknown 07/01/2021 Simvastatin Unknown 07/01/2021 Medications aspirin 81 mg enteric coated tablet Take 81 mg by mouth daily Active cetirizine (ZyrTEC) 10 mg tablet Take 10 mg by mouth daily Active acetaminophen 500 mg capsule Take 2 capsules (1,000 mg total) by mouth every 6 (six) hours as needed for pain or headaches 30 tablet 2 Active docusate sodium (COLACE) 100 mg capsuleIndicati ons:constipatio n Take 1 capsule (100 mg total) by mouth 2 (two) times a day as needed for constipation 2 Active metoprolol tartrate (LOPRESSOR) 25 mg immediate release tablet Take 0.5 tablets (12.5 mg total) by mouth 2 (two) times a day 30 tablet 1 2 Active furosemide (LASIX) 40 mg tablet Take 1 tablet (40 mg total) by mouth daily 30 tablet 2 Active Active Problems Problem Noted Date Diagnosed Date Coronary artery disease of n ative heart with stable angina pectoris 07/11/2021 Overview (07/11/2021): Added automatically from request for surgery [id number] Abnormal stress test 06/25/2021 Overview (06/25/2021): Added automatically from request for surgery [id number] Surgical History Surgery Date Site/Laterality Comments CARDIAC DEFIBRILLATOR PLACEMENT 03/16/2006 - 03/15/2007 single chamber, [employer], generator change 2014 Medical History Medical History Date Comments Abnormal stress test 06/25/2021 CAD (coronary artery disease) HTN (hypertension) Hyperlipidemia CVA (cerebral vascular accident) (HCC) Carotid arterial disease CKD (chronic kidney disease) PVD (peripheral vascular disease) Myocardial infarction (HCC) Type 2 diabetes mellitus (HCC) NICM (nonischemic cardiomyopathy) (HCC) Family History Medical History Relation Name Comments Cancer Father No Known Problems Mother Relation Name Status Comments Brother Father Mother Alive Social History Tobacco Use Types Packs/Day Years Used Date Smoking Tobacco: Every Day Cigarettes 1 47 Smokeless Tobacco: Never Tobacco Cessation:Ready to Q uit: Yes; Counseling Given: Yes AUDIT-C Answer Date Recorded Q1: How often do you have a drink containing alc ohol? 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 Gender Identity Not on file Sexual Orientation Not on file Obstetrics History Last Filed Vital Signs Vital Sign Reading Time Taken Comments Blood Pressure 130/72 09/05/2021 2:50 PM CDT Pulse 76 09/05/2021 2:50 PM CDT Temperature 36.6 C (97.9 F) 07/30/2021 7:33 AM CDT Respiratory Rate 14 09/05/2021 2:50 PM CDT Oxygen Saturation 99% 09/05/2021 2:50 PM CDT Inhaled Oxygen Concentration - - Weight 77.1 kg (170 lb) 09/05/2021 2:50 PM CDT Height 170.2 cm (5' 7) 09/05/2021 2:50 PM CDT Body Mass Index 26.63 09/05/2021 2:50 PM CDT Plan of Treatment Health Maintenance Due Date Last Done Comments Colon Cancer Screening-Colonoscopy 1955 Depression Screening 1955 Hepatitis C Screening 1955 Prostate Cancer Screening-PSA 1957 DTaP/Tdap/Td Vaccine (1 - Tdap) 1968 Hepatitis B Screening 11/24/1975 Zoster Vaccine (1 of 2) 11/24/2007 Pneumococcal vaccine 65+ (2 of 2 - PPSV23) 03/14/2019 01/17/2019 Fall Risk Assessment 07/30/2022 07/30/2021 Abdominal Aortic Aneurysm (A AA) Screen 2022 Well Visit 65+ 2022 Covid-19 Vaccine ( season) 2023 03/18/2021, 06/04/2020, 05/07/2020 Influenza Vaccine (Season Ended) 2024 01/18/20 19 Insurance [facility] MEDICARE [employer] [facility] Address: [address] [address] [place] [address] [employer] [facility] Address: [address] [address] [place] [address] [employer] Advance Directives For more information, please contact: [phone] * Full Code (Latest Code Status on File) Date Activated Date Inactivated Comments 07/26/2021 2:57 PM 07/30/2021 9:13 PM * Full Code Date Activated Date Inactivated Comments 07/02/2021 3:29 PM 07/02/2021 3:31 PM Care Teams Abstract Checker Relationship Specialty Start Date End Date David Cordoba MD [address] [place] [address] [place] [address] PCP - General Family Medicine 07/11/21
--- OUTSIDE RECORDS SUMMARY | 2024-09-12 12:22 | XMS_ITS | Data Portability ---
Author Organization [facility] Alber Medrano Address [address] [place] [address] Care Team Providers Care Site Coordinator Name Role Phone MIGUEL HALL Primary Care Provider [phone] DARWIN PRINGLE [employer] Assessment No assessment recorded. Plan of Treatment Reminders Order Date Submit Date Provider Last Modified By Organization Details Last Modified Time Details Appointments MEDICARE WELLNESS VISIT 2024 08:45A Alexa Chowdhury MD Not available Not available Not available ANY 15 2024 08:30A Alexa Chowdhury MD Not available Not available Not available Lab HbA1c (hemoglob in A1c), blood 2024 025 [facility], [address] [place] [address], [address], [place], [address], 07/14/2024 13:26:26 CMP, serum or plasma 2024 025 [facility], [address] [place] [address], [address], [place], [address], 07/14/2024 13:26:24 CBC w/ auto diff 2024 025 [facility], [address] [place] [address], [address], [place], [address], 07/14/2024 13:26:29 lipid panel, serum 2024 025 [facility], [address], [address], [place], [address], 07/14/2024 13:26:22 vitamin D, 25-hydrox y, total, serum 2024 025 [facility], [address], [address], [place], [address], 07/14/2024 13:26:31 urinalysi s, complete 2024 025 [facility], [address], [address], [place], [address], 07/14/2024 13:26:27 HIV 1 + 2, meaningfu l use set 2024 025 [facility], [address], [address], [place], [address], 07/14/2024 13:26:33 Hepatitis C IgG Ab, qual, serum 2024 025 [facility], [address], [address], [place], [address], 07/14/2024 13:26:21 PSA, total, serum or plasma 2024 025 [facility], [address], [address], [place], [address], 07/14/2024 13:26:30 Referral gastroent erologist referral [facility], [address] [facility] [address], [place], [address], 09/02/2024 14:25:20 Procedures None recorded. Surgeries None recorded. Imaging LDCT, chest, for lung cancer screening [address], [facility] [address], [place], [address], 09/08/2024 09:37:44 Medication Orders ergocalci ferol (vitamin D2) 1,250 mcg (50,000 unit) capsule 2024 [facility] #[id number], [address], [place], [place], [id number], 09/02/2024 10:44:01 aspirin 81 mg tablet,de layed release 2024 025 [facility] #94954, [address], [place], [place], [id number], 07/12/2024 14:44:25 rosuvasta tin 40 mg tablet 2024 025 [facility] #87979, [address], [place], [place], [id number], 07/12/2024 14:44:25 nicotine 21 mg/24 hr daily transderm al patch 2024 025 [facility] #[id number], [address], [place], [place], [id number], 09/02/2024 10:32:47 nicotine 14 mg/24 hr daily transderm al patch 2024 025 [facility] #[id number], [address], [place], [place], [id number], 09/02/2024 10:32:43 nicotine 7 mg/24 hr daily transderm al patch 2024 025 [facility] #[id number], [address], [place], [place], [id number], 09/02/2024 10:32:52 Patient TargetsNo targets recorded. Patient Instructions Encounter Date Encounter Id Patient Instructions Last Modified By Organization Details Last Modified Time 07/12/2024 [id number] A healthy lifestyle: care instructions oajao Not available 07/12/2024 14:42:40 high blood pressure: care instructions oajao Not available 07/12/2024 14:42:40 learning about high blood pressure oajao Not available 07/12/2024 14:42:40 09/02/2024 [id number] high blood pressure: care instructions oajao Not available 09/02/2024 10:43:53 learning about high blood pressure oajao Not available 09/02/2024 10:43:53 Reason for Referral Dietetic Aide Referral for Screening for malignant neoplasm of colon Referring Physician: Cornell Chowdhury, Internal Medicine, Encounter Date: 09/02/2024 Results Created Date Observation Date Name Description Value Unit Range Abnormal Flag Note LastModifiedBy Organization Detail LastModifiedTime 10/22/19 23 10/21/2022 Prost ate speci fic Ag [Mass /volu me] in Serum or Plasm a PSA medicare screen text: 0.00-4 .00 PSA medic are scree n Not Available Not Available 07/11/2024 16:56:31 10/22/19 23 10/21/2022 Lipid 1995 panel - Serum or Plasm a cholesterol text: 140-19 9 swapna stero l Not Available Not Available 07/11/2024 16:56:31 10/22/19 23 10/21/2022 Lipid 1996 panel - Serum or Plasm a triglyceride s text: 0-150 trigl yceri eber Not Available Not Available 07/11/2024 16:56:31 10/22/19 23 10/21/2022 Lipid 1996 panel - Serum or Plasm a HDL cholesterol text: 40- low HDL swapna stero l Not Available Not Available 07/11/2024 16:56:31 10/22/19 23 10/21/2022 Lipid 1996 panel - Serum or Plasm a cholesterol in LDL [mass/volume ] in serum or plasma text: 0-130 LDL swapna stero l, calcu lated Not Available Not Available 07/11/2024 16:56:31 10/22/19 23 10/21/2022 Compr ehens kaylan metab olic 2000 panel - Serum or Plasm a sodium text: 137-14 5 sodiu m Not Available Not Available 07/11/2024 16:56:31 10/22/19 23 10/21/2022 Compr ehens kaylan metab olic 2000 panel - Serum or Plasm a potassium text: 3.5-5. 1 potas sium Not Available Not Available 07/11/2024 16:56:31 10/22/19 23 10/21/2022 Compr ehens kaylan metab olic 2000 panel - Serum or Plasm a chloride text: 98-107 chlor josefa Not Available Not Available 07/11/2024 16:56:31 10/22/19 23 10/21/2022 Compr ehens kaylan metab olic 2000 panel - Serum or Plasm a carbon dioxide text: 22-30 carbo n dioxi de Not Available Not Available 07/11/2024 16:56:31 10/22/19 23 10/21/2022 Compr ehens kaylan metab olic 2000 panel - Serum or Plasm a anion gap text: 14-22 low anion gap Not Available Not Available 07/11/2024 16:56:31 10/22/19 23 10/21/2022 Compr ehens kaylan metab olic 2000 panel - Serum or Plasm a glucose text: 70-99 gluco se Not Available Not Available 07/11/2024 16:56:31 10/22/19 23 10/21/2022 Compr ehens kaylan metab olic 2000 panel - Serum or Plasm a BUN text: 8-19 low BUN Not Available Not Available 07/11/2024 16:56:31 10/22/19 23 10/21/2022 Compr ehens kaylan metab olic 2000 panel - Serum or Plasm a creatinine text: 0.66-1 .25 creat inine Not Available Not Available 07/11/2024 16:56:31 10/22/19 23 10/21/2022 Compr ehens kaylan metab olic 2000 panel - Serum or Plasm a GFR >60 GFR Not Available Not Availa ble 07/11/2024 16:56:31 10/22/19 23 10/21/2022 Compr ehens kyalan metab olic 2000 panel - Serum or Plasm a alkaline phosphatase text: 38-126 alkal ine phosp hatas e Not Available Not Available 07/11/2024 16:56:31 10/22/19 23 10/21/2022 [facility] kaylan metab ic 2000 panel - Serum or Plasm a alanine aminotransfe rase text: 0-50 leana ne amino trans feras e Not Available Not Available 07/11/2024 16:56:31 10/22/19 23 10/21/2022 [facility] kaylan metab olic 2000 panel - Serum or Plasm a aspartate aminotransfe rase text: 15-46 aspar gagnon amino trans feras e Not Available Not Available 07/11/2024 16:56:31 10/22/19 23 10/21/2022 [facility] kay[facility] metab [facility] 2000 panel - Serum or Plasm a bilirubin, total text: 0.20-1 .30 bilir ubin, total Not Available Not Available 07/11/2024 16:56:31 10/22/19 23 10/21/2022 [facility] kay[facility] metab [facility] 2000 panel - Serum or Plasm a calcium text: 8.4-10 .2 calci um Not Available Not Available 07/11/2024 16:56:31 10/22/19 23 10/21/2022 [facility] kaylan [facility] 2000 panel - Serum or Plasm a total protein text: 6.3-8. 2 total prote in Not Available Not Available 07/11/2024 16:56:31 10/22/19 23 10/21/2022 [facility] kaylan metab ic 2000 panel - Serum or Plasm a albumin text: 3.0-4. 4 album in Not Available Not Available 07/11/2024 16:56:31 10/22/19 23 10/21/2022 [facility] kay[facility] metab [facility] 2000 panel - Serum or Plasm a globulin text: 2.6-4. 2 globu radha Not Available Not Available 07/11/2024 16:56:31 10/22/19 23 10/21/2022 [facility] kaylan metab ic 2000 panel - Serum or Plasm a A/G ratio text: 1.0-2. 0 A/G ratio Not Available Not Available 07/11/2024 16:56:31 07/14/19 25 07/14/2024 HCV ANTIB BINA hep C virus Ab NON REACTI VE nonrea ctive HCV antib bina alone does not diffe renti ate betwe en previ ously resol ancelmo infec tion and activ e infec tion. Equiv ocal and React kaylan HCV antib bina resul ts shoul d be follo wed up with an HCV RNA test to suppo rt the diagn osis of activ e HCV infec tion. Not Available [facility] ([facility]) [address] [place], [address], 07/14/2024 13:26:21 07/14/19 25 07/14/2024 LIPID PANEL cholesterol, total 165 mg/dL 100-19 9 Not Available [facility] ([facility]) [address] [place], [address], 07/14/2024 13:26:22 07/14/19 25 07/14/2024 LIPID PANEL triglyceride s 78 mg/dL 0-149 Not Available [facility]) [address] [place], [address], 07/14/2024 13:26:22 07/14/19 25 07/14/2024 LIPID PANEL HDL cholesterol 35 mg/dL >39 below low normal Not Available [facility] ([facility]) [address] [place], [address], 07/14/2024 13:26:22 07/14/19 25 07/14/2024 LIPID PANEL VLDL cholesterol janell 15 mg/dL 5-40 Not Available [facility] ([facility]) [address] [place], [address], 07/14/2024 13:26:22 07/14/19 25 07/14/2024 LIPID PANEL LDL chol calc ([facility]) 115 mg/dL 0-99 above high normal Not Available [facility] ([facility]) [address] [place], [address], 07/14/2024 13:26:22 07/14/19 25 07/14/2024 COMP. METAB OLIC PANEL (14) glucose 93 mg/dL 70-99 Not Available [facility] ([facility]) [address] [place], [address], 07/14/2024 13:26:24 07/14/19 25 07/14/2024 COMP. METAB OLIC PANEL (14) BUN 8 mg/dL 8-27 Not Available [facility] ([facility]) [address] [place], [address], 07/14/2024 13:26:24 07/14/19 25 07/14/2024 COMP. METAB OLIC PANEL (14) creatinine 0.99 mg/dL 0.76-1 .27 Not Available [facility] ([facility]) [address] [place], [address], 07/14/2024 13:26:24 07/14/19 25 07/14/2024 COMP. METAB OLIC PANEL (14) eGFR 84 mL/mi n/1.7 3 >59 Not Available [facility] ([facility]) [address] [place], [address], 07/14/2024 13:26:24 07/14/19 25 07/14/2024 COMP. METAB OLIC PANEL (14) BUN/creatini ne ratio 8 10-24 below low normal Not Available [facility] ([facility]) [address] [place], [address], 07/14/2024 13:26:24 07/14/19 25 07/14/2024 COMP. METAB OLIC PANEL (14) sodium 142 mmol/ L 134-14 4 Not Available [facility] ([facility]) [address] [place], [address], 07/14/2024 13:26:24 07/14/19 25 07/14/2024 COMP. METAB OLIC PANEL (14) potassium 4.5 mmol/ L 3.5-5. 2 Not Available [facility] ([facility]) [address] [place], [address], 07/14/2024 13:26:24 07/14/19 25 07/14/2024 COMP. METAB OLIC PANEL (14) chloride 106 mmol/ L 96-106 Not Available [facility] ([facility]) [address] [place], [address], 07/14/2024 13:26:24 07/14/19 25 07/14/2024 COMP. METAB OLIC PANEL (14) carbon dioxide, total 23 mmol/ L 20-29 Not Available [facility] ([facility]) [address], [place], [address], 07/14/2024 13:26:24 07/14/19 25 07/14/2024 COMP. METAB OLIC PANEL (14) calcium 9.3 mg/dL 8.6-10 .2 Not Available [facility] ([facility]) [address] [place], [address], 07/14/2024 13:26:24 07/14/19 25 07/14/2024 COMP. METAB OLIC PANEL (14) protein, total 6.5 g/dL 6.0-8. 5 Not Available [facility] ([facility]) [address] [place], [address], 07/14/2024 13:26:24 07/14/19 25 07/14/2024 COMP. METAB OLIC PANEL (14) albumin 4.1 g/dL 3.9-4. 9 Not Available [facility] ([facility]) [address] [place], [address], 07/14/2024 13:26:24 07/14/19 25 07/14/2024 COMP. METAB OLIC PANEL (14) globulin, total 2.4 g/dL 1.5-4. 5 Not Available [facility] ([facility]) [address] [place], [address], 07/14/2024 13:26:24 07/14/19 25 07/14/2024 COMP. METAB OLIC PANEL (14) bilirubin, total 0.6 mg/dL 0.0-1. 2 Not Available [facility] ([facility]) [address], [place], [address], 07/14/2024 13:26:24 07/14/19 25 07/14/2024 COMP. METAB OLIC PANEL (14) alkaline phosphatase 89 IU/L 44-121 Not Available [facility]) [address], [place], [address], 07/14/2024 13:26:24 07/14/19 25 07/14/2024 COMP. METAB OLIC PANEL (14) AST (SGOT) 17 IU/L 0-40 Not Available [facility] ([facility]) [address], [place], [address], 07/14/2024 13:26:24 07/14/19 25 07/14/2024 COMP. METAB OLIC PANEL (14) ALT (SGPT) 9 IU/L 0-44 Not Available [facility] ([facility]) [address], [place], [address], 07/14/2024 13:26:24 07/14/19 25 07/14/2024 MICRO SCOPI C EXAMI NATIO N WBC NONE SEEN /hpf 0-5 Not Available [facility] ([facility]) [address], [place], [address], 07/14/2024 13:26:25 07/14/19 25 07/14/2024 MICRO SCOPI C EXAMI NATIO N RBC 0-2 /hpf 0-2 Not Available [facility] ([facility]) [address], [place], [address], 07/14/2024 13:26:25 07/14/19 25 07/14/2024 MICRO SCOPI C EXAMI NATIO N epithelial cells (non renal) NONE SEEN /hpf 0-10 Not Available [facility] ([facility]) [address], [place], [address], 07/14/2024 13:26:25 07/14/19 25 07/14/2024 MICRO SCOPI C EXAMI NATIO N casts NONE SEEN /lpf nonese en Not Available [facility] ([facility]) [address], [place], [address], 07/14/2024 13:26:25 07/14/19 25 07/14/2024 MICRO SCOPI C EXAMI NATIO N bacteria NONE SEEN nonese en/few Not Available [facility] ([facility]) [address], [place], [address], 07/14/2024 13:26:25 07/14/19 25 07/14/2024 HEMOG LOBIN A1C hemoglobin A1C 5.2 % 4.8-5. 6 Predi abete s: 5.7 - 6.4 Diabe octavio: >6.4 Glyce rick contr ol for adult s with diabe octavio: <7.0 Not Available [facility] ([facility]) [address], [place], [address], 07/14/2024 13:26:26 07/14/19 25 07/14/2024 URINA LYSIS , COMPL ETE specific gravity 1.027 1.005- 1.030 Not Available [facility] ([facility]) [address], [place], [address], 07/14/2024 13:26:27 07/14/19 25 07/14/2024 URINA LYSIS , COMPL ETE pH 6.0 5.0-7. 5 Not Available [facility] ([facility]) [address], [place], [address], 07/14/2024 13:26:27 07/14/19 25 07/14/2024 URINA LYSIS , COMPL ETE urine-color YELLOW yellow Not Available [facility]) [address], [place], [address], 07/14/2024 13:26:27 07/14/19 25 07/14/2024 URINA LYSIS , COMPL ETE appearance CLEAR clear Not Available [facility] ([facility]) [address], [place], [address], 07/14/2024 13:26:27 07/14/19 25 07/14/2024 URINA LYSIS , COMPL ETE WBC esterase TRACE negati ve abnormal Not Available [facility] ([facility]) [address], [place], [address], 07/14/2024 13:26:27 07/14/19 25 07/14/2024 URINA LYSIS , COMPL ETE protein 1+ negati ve/tra ce abnormal Not Available [facility] ([facility]) [address], [place], [address], 07/14/2024 13:26:27 07/14/19 25 07/14/2024 URINA LYSIS , COMPL ETE glucose NEGATI VE negati ve Not Available [facility] ([facility]) [address], [place], [address], 07/14/2024 13:26:27 07/14/19 25 07/14/2024 URINA LYSIS , COMPL ETE ketones TRACE negati ve abnormal Not Available [facility] ([facility]) [address] [place], [address], 07/14/2024 13:26:27 07/14/19 25 07/14/2024 URINA LYSIS , COMPL ETE occult blood NEGATI VE negati ve Not Available [facility] ([facility]) [address] [place], [address], 07/14/2024 13:26:27 07/14/19 25 07/14/2024 URINA LYSIS , COMPL ETE bilirubin NEGATI VE negati ve Not Available [facility] ([facility]) [address], [place], [address], 07/14/2024 13:26:27 07/14/19 25 07/14/2024 URINA LYSIS , COMPL ETE urobilinogen ,semi-qn 1.0 mg/dL 0.2-1. 0 Not Available [facility] ([facility]) [address], [place], [address], 07/14/2024 13:26:27 07/14/19 25 07/14/2024 URINA LYSIS , COMPL ETE nitrite, urine NEGATI VE negati ve Not Available [facility] ([facility]) [address], [place], [address], 07/14/2024 13:26:27 07/14/19 25 07/14/2024 URINA LYSIS , COMPL ETE microscopic examination SEE BELOW: Micro scopi c was indic ated and was perfo rmed. Not Available [facility] ([facility]) [address] [place], [address], 07/14/2024 13:26:27 07/14/19 25 07/14/2024 CBC WITH DIFFE RENTI AL/PL ATELE T WBC 5.6 x10e3 /uL 3.4-10 .8 Not Available [facility] ([facility]) [address] [place], [address], 07/14/2024 13:26:29 07/14/19 25 07/14/2024 CBC WITH DIFFE RENTI AL/PL ATELE T RBC 5.13 x10e6 /uL 4.14-5 .80 Not Available [facility] ([facility]) [address] [place], [address], 07/14/2024 13:26:29 07/14/19 25 07/14/2024 CBC WITH DIFFE RENTI AL/PL ATELE T hemoglobin 14.1 g/dL 13.0-1 7.7 Not Available [facility] ([facility]) [address], [place], [address], 07/14/2024 13:26:29 07/14/19 25 07/14/2024 CBC WITH DIFFE RENTI AL/PL ATELE T hematocrit 44.1 % 37.5-5 1.0 Not Available [facility] ([facility]) [address], [place], [address], 07/14/2024 13:26:29 07/14/19 25 07/14/2024 CBC WITH DIFFE RENTI AL/PL ATELE T MCV 86 fL 79-97 Not Available [facility] ([facility]) [address], [place], [address], 07/14/2024 13:26:29 07/14/19 25 07/14/2024 CBC WITH DIFFE RENTI AL/PL ATELE T MCH 27.5 pg 26.6-3 3.0 Not Available [facility] ([facility]) [address], [place], [address], 07/14/2024 13:26:29 07/14/19 25 07/14/2024 CBC WITH DIFFE RENTI AL/PL ATELE T MCHC 32.0 g/dL 31.5-3 5.7 Not Available [facility] ([facility]) [address], [place], [address], 07/14/2024 13:26:29 07/14/19 25 07/14/2024 CBC WITH DIFFE RENTI AL/PL ATELE T RDW 13.0 % 11.6-1 5.4 Not Available [facility] ([facility]) [address], [place], [address], 07/14/2024 13:26:29 07/14/19 25 07/14/2024 CBC WITH DIFFE RENTI AL/PL ATELE T platelets 218 x10e3 /uL 150-45 0 Not Available [facility] ([facility]) [address], [place], [address], 07/14/2024 13:26:29 07/14/19 25 07/14/2024 CBC WITH DIFFE RENTI AL/PL ATELE T neutrophils 51 % notest ab. Not Available [facility] ([facility]) [address], [place], [address], 07/14/2024 13:26:29 07/14/19 25 07/14/2024 CBC WITH DIFFE RENTI AL/PL ATELE T lymphs 30 % notest ab. Not Available [facility] ([facility]) [address], [place], [address], 07/14/2024 13:26:29 07/14/19 25 07/14/2024 CBC WITH DIFFE RENTI AL/PL ATELE T monocytes 14 % notest ab. Not Available [facility] ([facility]) [address], [place], [address], 07/14/2024 13:26:29 07/14/19 25 07/14/2024 CBC WITH DIFFE RENTI AL/PL ATELE T eos 4 % notest ab. Not Available [facility] ([facility]) [address], [place], [address], 07/14/2024 13:26:29 07/14/19 25 07/14/2024 CBC WITH DIFFE RENTI AL/PL ATELE T basos 1 % notest ab. Not Available [facility] ([facility]) [address], [place], [address], 07/14/2024 13:26:29 07/14/19 25 07/14/2024 CBC WITH DIFFE RENTI AL/PL ATELE T neutrophils (absolute) 2.9 x10e3 /uL 1.4-7. 0 Not Available [facility] ([facility]) [address], [place], [address], 07/14/2024 13:26:29 07/14/19 25 07/14/2024 CBC WITH DIFFE RENTI AL/PL ATELE T lymphs (absolute) 1.7 x10e3 /uL 0.7-3. 1 Not Available [facility] ([facility]) [address], [place], [address], 07/14/2024 13:26:29 07/14/19 25 07/14/2024 CBC WITH DIFFE RENTI AL/PL ATELE T monocytes(ab solute) 0.8 x10e3 /uL 0.1-0. 9 Not Available [facility] ([facility]) [address], [place], [address], 07/14/2024 13:26:29 07/14/19 25 07/14/2024 CBC WITH DIFFE RENTI AL/PL ATELE T eos (absolute) 0.2 x10e3 /uL 0.0-0. 4 Not Available [facility] ([facility]) [address], [place], [address], 07/14/2024 13:26:29 07/14/19 25 07/14/2024 CBC WITH DIFFE RENTI AL/PL ATELE T baso (absolute) 0.0 x10e3 /uL 0.0-0. 2 Not Available [facility] ([facility]) [address], [place], [address], 07/14/2024 13:26:29 07/14/19 25 07/14/2024 CBC WITH DIFFE RENTI AL/PL ATELE T immature granulocytes 0 % notest ab. Not Available [facility] ([facility]) [address], [place], [address], 07/14/2024 13:26:29 07/14/19 25 07/14/2024 CBC WITH DIFFE RENTI AL/PL ATELE T immature grans (abs) 0.0 x10e3 /uL 0.0-0. 1 Not Available [facility] ([facility]) [address], [place], [address], 07/14/2024 13:26:29 07/14/1907/14/2024 PROST ATE-S PECIF IC AG prostate specific Ag 1.2 NG/mL 0.0-4. 0 Jeremy ECLIA metho dolog y. Accor ding to the Ameri can Urolo gical Assoc iatio n, Serum PSA shoul d decre ase and remai n at undet ectab le level s after radic al prost atect shari. The AUA defin es bioch emica l recur rence as an initi al PSA value 0.2 ng/mL or great er follo wed by a subse quent confi rmato ry PSA value 0.2 ng/mL or great er. Value s obtai edwin with diffe rent assay metho ds or kits canno t be used inter hannon eably . Resul ts canno t be inter prete d as absol wales evide nce of the prese nce or absen ce of [facility] luna fisher se. Not Available [facility] ([facility]) [address], [place], [address], 07/14/2024 13:26:30 07/14/1907/14/2024 VITAM IN D, 25-HY DROXY vitamin D, 25-hydroxy 19.9 NG/mL 30.0-1 00.0 below low normal Vitam in D defic iency has been defin ed by the Insti tute of Medic ine and an Endoc rine Socie ty pract ice guide line as a level of serum 25-OH vitam in D less than 20 ng/mL (1,2) . The Endoc rine Socie ty went on to furth er defin e vitam in D insuf ficie ncy as a level betwe en 21 and 29 ng/mL (2). 1. IOM (Inst itute of Medic ine). 2010. Dieta ry refer ence intak es for calci um and D. Zachary richards [place]: The Natio nal [facility] Press . 2. Azul gold [place], [place], [employer] off-F errar i FREGOSO, et al. Evalu ation , treat ment, and preve ntion of vitam in D defic iency : an Endoc rine Socie ty clini janell pract ice guide line. JCEM. 2010; 96(7) :1911 -30. Not Available [facility] ([facility]) [address], [place], [address], 07/14/2024 13:26:31 07/14/19 25 07/14/2024 HIV AB/P2 4 AG WITH REFLE X HIV Ab/P24 Ag screen NON REACTI VE nonrea ctive HIV-1 /HIV- 2 antib odies and HIV-1 p24 antig en were NOT detec josé luis. There is no labor atory evide nce of HIV infec tion. HIV Negat akylan Not Available [facility] ([facility]) [address], [place], [address], 07/14/2024 13:26:33 Result Notes None recorded. 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 Procedures Surgical History Date Name Laterality Status Provider Name and Address Organization Details Recorded Time implantation of cardiac pacemaker completed Alexandrea Fletcher MA [facility] 07/12/2024 13:51:07 coronary artery bypass graft completed Cornell Chowdhury MD Attn: Accounting, [facility], [place], [address], [facility] [place] 07/12/2024 14:07:23 Imaging Results None recorded. Procedure Notes None recorded. Medical Equipment None Reported. Allergies Allergen ID Allergen Name Allergen Category Reaction Reaction Severity Criticality Documentation Date Start Date Code Code System Note Provider Name and Address Organization Details Recorded Time [id number] Jardiance medicatio n Not available Not available Not available 09/02/2024 07649 59 RxNorm Cornell Chowdhury MD Attn: Roel gutierrez,[address] [facility], [place], [address], [facility] [place] 10:46:35 Medications Name Sig Start Date Stop Date Status Note LastModified by Organization Details LastModified Time nicotine 14 mg/24 hr daily transderma l patch Apply 1 patch every day by transderm al route in the morning for 14 days. 09/02 completed Not Available Not Available Not Available metoprolol succinate ER 50 mg tablet,ext ended release 24 hr TAKE 1 TABLET BY MOUTH DAILY active Not Available Not Available No t Available meloxicam 15 mg tablet TAKE 1 TABLET BY MOUTH EVERY DAY DIRECTED FOR MUSCLE SPRAIN 07/12 completed Not Available Not Available Not Available aspirin 81 mg tablet,del ayed release TAKE 1 TABLET BY MOUTH EVERY DAY AROUND THE CLOCK FOR BLOOD THINNER active Not Available Not Available No t Available acetaminop hen 500 mg tablet TAKE 2 TABLET BY MOUTH EVERY 6 HOURS NEEDED FOR PAIN 07/12 completed Not Available Not Available Not Available nicotine 21 mg/24 hr daily transderma l patch Apply 1 patch every day by transderm al route in the morning for 42 days. 09/02 completed Not Available Not Available Not Available ergocalcif kristen (vitamin D2) 1,250 mcg (50,000 unit) capsule TAKE 1 CAPSULE BY MOUTH EVERY WEEK DIRECTED active Not Available Not Available No t Available methylpred nisolone 4 mg tablets in a dose pack TAKE BY MOUTH DIRECTED 07/12 completed Not Available Not Available Not Available naproxen 500 mg tablet TAKE 1 TABLET BY MOUTH TWICE DAILY WITH FOOD 07/12 completed Not Available Not Available Not Available nicotine 7 mg/24 hr daily transderma l patch Apply 1 patch every day by transderm al route in the morning for 14 days. 09/02 completed Not Available Not Available Not Available Bactrim DS 800 mg-160 mg tablet Take 1 tablet every 12 hours by oral route as directed for 3 days. 09/02 completed Not Available Not Available Not Available rosuvastat in 40 mg tablet TAKE 1 TABLET BY MOUTH EVERY DAY AT DINNER FOR CHOLESTER OL active Not Available Not Available No t Available Zyrtec active Not Available Not Availa ble Not Available Jardiance 10 mg tablet TAKE 1 TABLET BY MOUTH EVERY DAY 07/12 completed It made the whole side go numb Not Available Not Available Not Available Vitals Date Recorded Body weight Body mass index (BMI) Body height Heart rate Oxygen saturation Oxygen saturation in Arterial blood by Pulse oximetry Body temperature Systolic blood pressure Diastolic blood pressure Provider Name and Address Organization Details Last Updated DateTime 5 29346.9 6 g 26.4 kg/m2 170.18 cm 78 /min 98 % 98 % 98.1 [degF] 124 mm[Hg] 78 mm[Hg] Alexandrea Fletcher MA [place] - [facility] 5 13:54:19 Date Recorded Body height Body mass index (BMI) Body weight Heart rate Oxygen saturation Oxygen saturation in Arterial blood by Pulse oximetry Body temperature Respiratory rate Systolic blood pressure Diastolic blood pressure Provider Name and Address Organization Details Last Updated DateTime 5 170.18 cm 25.1 kg/m2 08544.7 8 g 66 /min 99 % 99 % 97.8 [degF] 14 /min 130 mm[Hg] 84 mm[Hg] Radha Bennett MA [place] - [facility] 5 10:34:42 Social History Question Answer Notes LastModified by Organizat ion Details LastModified Time Tobacco Smoking Status Current Every Day Smoker Alexandrea ROBIN Fletcher [facility], [place] - [facility] 07/12/2024 13:50:58 What Is Your Level Of Caffeine Consumption? Moderate Information not available 07/12/2024 What Was The Date Of Your Most Recent Tobacco Screening? 09/02/2024 Information not available 09/02/2024 What Is Your Current Pack Years? 30ormorepacky ears Information not available 07/12/2024 At What Age Did You Start Smoking Tobacco? 38 Information not available 07/12/2024 How Much Tobacco Do You Smoke? 1 PPD Information not available 07/12/2024 Has Tobacco Cessation Counseling Been Provided? Yes Information not available 07/12/2024 On What Date Was Tobacco Cessation Counseling Provided? 09/02/2024 Information not available 09/02/2024 How Many Years Have You Smoked Tobacco? 31 Information not available 09/02/2024 Sex: Unknown Functional Status Question Answer Note LastModified by Organizat ion Details LastModified Time Do you use any illicit or recreational drugs? No Information not available 07/12/2024 Do you or have you ever used any other forms of tobacco or nicotine? No Information not available 07/12/2024 What is your level of alcohol consumption? None Information not available 07/12/2024 Mental Status None recorded. Family History Relationship Description Onset Age of this Age Resolved Age Notes LastModified by Organization Details LastModified Time Mother Cerebrovascu lar accident [email or web address] Not available 13:49:03 Medical History Condition Response Coronary Artery Disease N Other N High Blood Pressure Y Atrial Fibrillation N Kidney or Bladder Problems N Thyroid Problems N GI Problems N Depression N COPD N Blood Clots N Have you had a mammogram in the last yea r? N Skin Problems N Anemia N Heart Attack ([place]) N Anxiety Disorder N Diabetes N Muscle, Joint, or Bone Problems N Seizures/Epilepsy N Have you had a colonoscopy in the last 1 0 years? N Acid Reflux (GERD) N Cancer N Stroke N Asthma N Allergies N Have you had a PSA blood test in the las t year? N High Cholesterol N Hepatitis N Liver Disease N Headaches N Heart Failure N Osteoporosis N Immunizations Vaccine Type Date Status Note Provider Nam e and Address Organization Details Recorded Time COVID-19, mRNA, LNP-S, PF, 100 mcg/0.5mL dose or 50 mcg/0.25mL dose 1 completed ROBIN [place], [place] - [facility] 07/12/2024 13:56:47 COVID-19, mRNA, LNP-S, PF, 100 mcg/0.5mL dose or 50 mcg/0.25mL dose 1 completed ROBIN [place], [place] - [facility] 07/12/2024 13:56:47 Pneumococcal conjugate PCV 13 9 completed Radha Bennett [place], [place] [facility] 07/12/2024 13:56:47 Influenza, high-dose, trivalent, PF 9 completed Radha Bennett [place], [place] [facility] 07/12/2024 13:56:47 COVID-19, mRNA, LNP-S, PF, 100 mcg/0.5mL dose or 50 mcg/0.25mL dose 2 completed Thaddeus evangelista, [place] - [facility] 03/18/2021 14:04:30 Tdap 5 completed ROBIN [place], [place] - [facility] 07/12/2024 14:56:31 Pneumococcal conjugate PCV20, polysaccharide SJV254 conjugate, adjuvant, PF 5 completed Radha Bennett [place], [place] [facility] 07/12/2024 14:56:59 Past Encounters Encounter ID Performer Location Encounter Start Date Encounter Closed Date Diagnosis/Indication Diagnosis SNOMED-CT Code Diagnosis ICD10 Code Diagnosis Note [id number] Oscar Nicole MD [facility] [address] [place] [address] 03/18/2021 12:10:50 06/17/2021 18:28:14 Administration of SARS-CoV-2 mRNA vaccine 3369562103 Z23 [id number] MD Michelle Henry (Adult Med) [address] [place] [address] 07/12/2024 13:40:07 07/13/2024 11:37:38 Adult health examination 743715778 Z00.01 Screening for malignant neoplasm of prostate 662115671 Z12.5 Benign ess ential hypertension 1096055 I10 Overweight in adulthood with body mass index of 25 or more but less than 30 608304600 E66.3 Z68.26 Overweight 533303136 E66 .3 History of clinical finding in subject 171688024 Z87.891 History of coronary artery bypass grafting 983089066 Z95.1 Combinatio n internal cardiac defibrillator and pacemaker in situ 429823030 Z95.810 Requires a tetanus booster 280699492 Z23 Requires v accination against Streptococcus pneumoniae 6285278144 Z23 [id number] Cornell Chowdhury MD [facility] (Adult Med) [address] [place] [address] 09/02/2024 10:22:45 09/05/2024 12:57:17 Benign essential hypertension 0207583 I10 Vitamin deficiency 15470 002 E56.9 Screening for malignant neoplasm of colon 241117640 Z12.11 Hypercholesterolemia 136 48584 E78.00 Health Concerns Section Related Observation LastModified by Organization Detai ls LastModified Time None Recorded Concern Status LastModified by Organization Details LastModified Time None Recorded Advance Directives Directive None Recorded Payers Insurance Date Sequence Insurance Name Policy Number Policy Arce Covered Member ID Arce Member ID Guarantor Name 06/17/2021 1 [facility] (MEDICARE REPLACEMENT/A DVANTAGE - PPO) [id number] [facility] [id number] [facility] Notes Date Note Type Note Provider Name and Address Organization Details Recorded Time 07/12/2024 text/html Doc, I need a primary PCP Sylvester Pringle 68 y/o BM who is here to establish care. PMHX. CAD, s/p CABG, s/p AICD and PM, Nicotine addiction, Allergies and HTN. On his last visit with his regulatory affairs analyst, Jardiance was added on, he felt it caused unilateral neurological symptoms and he discontinued it. He cannot give me a good reason why he is not taking his Rosuvastatin or Aspirin, but he has been compliant with his Metoprolol and Zyrtec. Cornell Chowdhury MD Attn: Accounting,[address] [facility], [place], [address], [facility] 07/12/2024 15:11:04 09/02/2024 text/html Jardiance don't work Unable to tolerate the Jardiance due to side effects. Cornell Chowdhury MD Attn: Accounting,[address] [facility], [place], [address], [place] [facility] 09/02/2024 11:21:47
--- OUTSIDE RECORDS SUMMARY | 2024-09-12 12:22 | XMS_ITS | Referral Summary ---
Author Organization [facility] Address [address] [place] [address] Care Team Providers Care Button Station Worker Name Role Phone David Cordoba MD Primary Care Provider [phone]- [phone] Allergies Active Allergy Reactions Criticality Noted Date [...] (07/11/2021): Added automatically from request for surgery [id number] Abnormal stress test 06/25/2021 Overview (06/25/2021): Added automatically from request for surgery [id number] Social History Tobacco Use Types Packs/Day Years [...] on file Legal Sex Male 2:32 PM [employer] Gender Identity Not on file Sexual Orientation Not on file Last Filed Vital Signs Vital Sign Reading [...] 09/05/2021 2:50 PM CDT Plan of Treatment Not on file Insurance [facility] MEDICARE ADVANTAGE ID[place] IDPA Advance Directives For more information, please contact: [phone] * Full Code (Latest Code Status on File) Date Activated Date Inactivated Comments 07/26/2021 2:57 PM 07/30/2021 9:13 PM * Full Code Date Activated Date Inactivated Comments 07/02/2021 3:29 PM 07/02/2021 3:31 PM Care Teams Button Station Worker Relationship Specialty Start Date End Date David Cordoba MD [address] [place] [address] [place] [address] PCP - General Family Medicine 07/11/21
== END 2024-09-12 12:14 | disposition home or self-care (01) ==
PROVIDERS: PCP Internal Medicine Infectious Disease; Visit Provider Internal Medicine Infectious Disease
DX: Z12.2 Encounter for screening for malignant neoplasm of respiratory organs (principal); Z87.891 Personal history of nicotine dependence
CPT/HCPCS: 71271